=== PATIENT | male | born 1975 | race Caucasian/White ===

== ENCOUNTER 2022-12-26 22:12 | Inpatient (IN) | payer OTHER ==
[2022-12-26] MEDS ORDERED: Aspirin 81 MG Tab.Chew PO ONE (22:36)
[2022-12-26] MEDS ORDERED: Nitroglycerin 0.4 MG Tab.SL SL PRN (22:36)
[2022-12-26] MEDS ORDERED: Ondansetron 4 MG/2 ML SDV IVPUSH ONE (23:10)
[2022-12-26 23:11] LABS: CARBON DIOXIDE,CO2 6.7 mmol/L (21.0-32.0); POTASSIUM,K 4.1 mmol/L (3.5-5.1)
[2022-12-26] MEDS ORDERED: Albuterol/Ipratropium 3.0-0.5 MG/3 ML Neb Soln NEB ONE (23:14)
[2022-12-26] MEDS ORDERED: Sodium Chloride 0.9% 1,000 ML IV ONE (23:17)
[2022-12-26 23:40] LABS: CORONAVIRUS COVID-19 NAA NEGATIVE (NEGATIVE); INFLUENZA A NAA NEGATIVE (NEGATIVE); INFLUENZA B NAA NEGATIVE (NEGATIVE); RESPIRATORY SYNCYTIAL VIR NAA NEGATIVE (NEGATIVE)
[2022-12-26] MEDS ORDERED: cefTRIAXone 2 GM in Sodium Chloride 0.9% 50 ML IV ONE (23:43)
[2022-12-26] MEDS ORDERED: Azithromycin 500 MG in Sodium Chloride 0.9% 250 ML IV ONE (23:43)
[2022-12-26] MEDS ORDERED: Ketorolac 30 MG/ML SDV IM ONE (23:46)
[2022-12-26] MEDS ORDERED: Dexamethasone 10 MG/ML SDV IM STA (23:46)
[2022-12-26] MEDS ORDERED: Orphenadrine 60 MG/2 ML Inj IM ONE (23:46)
[2022-12-27] MEDS ORDERED: Iopamidol 755 MG/ML 500 ML Multipack Bottle IVPUSH STA (00:12)
[2022-12-27] MEDS ORDERED: Albuterol/Ipratropium 3.0-0.5 MG/3 ML Neb Soln NEB ONE (00:43)
[2022-12-27] MEDS ORDERED: methylPREDNISolone Sodium Succinate 40 MG/1 ML SDV IVPUSH ONE (00:43)
[2022-12-27] MEDS ORDERED: Ondansetron 4 MG/2 ML SDV IVPUSH ONE (02:22)
[2022-12-27 03:10] LABS: ACETAMINOPHEN <2.0 ug/mL
[2022-12-27] MEDS ORDERED: Sodium Chloride 0.9% 1,000 ML IV ONE (03:18)
[2022-12-27] MEDS ORDERED: Dextrose 5%-Lactated Ringers 1,000 ML IV SCH (04:00)
[2022-12-27] MEDS ORDERED: Sodium Bicarbonate 8.4% 50 MEQ/50 ML Syringe IVPUSH ONE ×4 (04:57→08:19)
[2022-12-27] MEDS ORDERED: DEXTROSE IV SCH ×2 (05:00→07:00)
[2022-12-27] MEDS ORDERED: SODIUM BICARBONATE IV SCH ×2 (05:00→07:00)
[2022-12-27] MEDS ORDERED: NACL IV SCH ×2 (05:00→07:00)
[2022-12-27] MEDS ORDERED: Dextrose 5%-0.9% NaCl 1,000 ML IV SCH (05:15)
[2022-12-27] MEDS ORDERED: LORazepam 2 MG/ML SDV ONE (05:48)
[2022-12-27] MEDS ORDERED: fentaNYL/Normal Saline 2,500 MCG in Premix Bag 1 BAG IV PRN (06:04)
[2022-12-27] MEDS ORDERED: Rocuronium 100 MG/10 ML MDV IVPUSH ONE (06:10)
[2022-12-27] MEDS ORDERED: Etomidate 2 MG/ML 20 ML SDV IVPUSH ONE (06:10)
[2022-12-27] MEDS ORDERED: Succinylcholine 200 MG/10 ML MDV IVPUSH ONE (06:10)
[2022-12-27] MEDS ORDERED: Midazolam HCl In 0.9 % NaCl/Pf 100 ML IV SCH ×2 (06:15→06:45)
[2022-12-27 06:36] LABS: BILIRUBIN INDIRECT 0.6; CARBON DIOXIDE,CO2 6.8 mmol/L (21.0-32.0); POTASSIUM,K 5.4 mmol/L (3.5-5.1)
[2022-12-27] MEDS ORDERED: Sodium Bicarbonate 150 MEQ in Dextrose 5% in Water 1,000 ML IV SCH ×2 (07:00)
[2022-12-27] MEDS ORDERED: Sodium Bicarbonate 150 MEQ in Sodium Chloride 0.9% 1,000 ML IV ONE (07:15)
[2022-12-27] MEDS ORDERED: Pantoprazole 40 MG in Sodium Chloride 0.9% 10 ML IVPUSH ONE (10:03)
[2022-12-27 11:59] VITALS: BP 116/76; PULSE 112
== END 2022-12-27 11:07 | DRG 208 ==
LOC: MW.ED 22:12 → MW.MS 12-27 01:41 → OBSVTOIN 12-27 04:15 → MW.ICU 12-27 04:16
PROVIDERS: ADMIT Internal Medicine; ATTEND Internal Medicine
PROC: 0DH67UZ Insertion of Feeding Device into Stomach, Via Natural or Artificial Opening (ICD-10-PCS; principal; 2022-12-27)
PROC: 5A09357 Assistance with Respiratory Ventilation, Less than 24 Consecutive Hours, Continuous Positive Airway Pressure (ICD-10-PCS; 2022-12-27)
PROC: 5A1935Z Respiratory Ventilation, Less than 24 Consecutive Hours (ICD-10-PCS; 2022-12-27)
PROC: 4A133B1 Monitoring of Arterial Pressure, Peripheral, Percutaneous Approach (ICD-10-PCS; 2022-12-27)
PROC: 4A133J1 Monitoring of Arterial Pulse, Peripheral, Percutaneous Approach (ICD-10-PCS; 2022-12-27)
PROC: 0BH17EZ Insertion of Endotracheal Airway into Trachea, Via Natural or Artificial Opening (ICD-10-PCS; 2022-12-27)
DX: J96.00 Acute respiratory failure, unspecified whether with hypoxia or hypercapnia (principal); M62.82 Rhabdomyolysis; E87.20 Acidosis, unspecified; J98.11 Atelectasis; F10.10 Alcohol abuse, uncomplicated; I48.91 Unspecified atrial fibrillation; Z20.822 Contact with and (suspected) exposure to COVID-19
CPT/HCPCS: 0241U; 36415; 36600; 51702; 71045; 71045-26; 71275; 71275-26; 74018; 74018-26; 80048; 80053; 80061; 80076; 80143; 80179; 80305-QW; 80307; 81001; 81003; 82009; 82550; 82803; 82947; 83036; 83605; 83735; 83880; 83930; 84100; 84484; 84550; 85025; 85027; 85379; 85610; 86850; 86900; 86901; 87040; 93005; 94640; 96361; 96365; 96367; 96375; 96376; 99285-25; A9270-GY; C9113; J0330; J0456; J0696; J2251; J2405; J2920; J3360; J3490; J7030; J7050; J7060; J7121; J7620-GY; Q9967